=== PATIENT | male | born 1975 ===

== ENCOUNTER 2016-08-31 12:47 | Day surgery (SDC) | payer SELFPAY ==
[~2016-08-31] VITALS: Ht 174.8 cm; Wt 74.8 kg
== END 2016-09-18 10:23 | disposition home or self-care (01) ==
LOC: SDC 12:47
PROVIDERS: ATTEND Internal Medicine
DX: Z53.21 Procedure and treatment not carried out due to patient leaving prior to being seen by health care provider (principal)
CPT/HCPCS: 36415; 84132; 85049; 85610